=== PATIENT | female | born 1995 | race Two or more races ===

== ENCOUNTER 2023-10-28 10:09 | Outpatient (CLI) | payer BC, SELFPAY ==
[2023-10-28 10:39] LABS: Basophils Percent Auto 0.4 % (0.2-1.2); Eosinophils Absolute Auto 0.1 K/mm3 (0-0.3); Eosinophils Percent Auto 0.9 % (0-4.4); Hematocrit 37.2 % (37.0-47.0); Hemoglobin 12.5 g/dL (12.0-15.0); Immature Granulocyte Absolute 0.04 K/mm3 (0.00-0.031); Immature Granulocyte Percent A 0.4 % (0-0.5); Lymphocytes Absolute Auto 1.77 K/mm3 (0.9-3.2); Lymphocytes Percent Auto 16.4 % (18.3-44.2); Mean Corpuscular HGB Conc 33.6 g/dl (32-36); Mean Corpuscular Hemoglobin 31.5 pg (26-34); Mean Corpuscular Volume 93.7 fl (80-100); Mean Platelet Volume 11.3 fl (7.4-10.4); Monocytes Absolute Auto 0.6 K/mm3 (0.1-0.6); Monocytes Percent Auto 5.1 % (2.6-8.5); Neutrophils Absolute Auto 8.3 K/mm3 (1.3-6.7); Neutrophils Percent Auto 76.8 % (45.5-73.1); Platelet Count Result 237 k/mm3 (150-375); Red Blood Count 3.97 M/mm3 (4.2-5.4); Red Cell Distribution Width 12.9 % (11.5-14.5); White Blood Count 10.8 K/mm3 (4.5-10.0)
[2023-10-28 11:29] LABS: Hepatitis B Surface Antigen Negative (Negative); Rubella IgG Antibody 16.1 IU/ML
[2023-10-28 11:31] LABS: HIV 1/2 Ab P24 Ag Result Negative (Negative)
[2023-10-29 10:49] LABS: Rapid Plasma Reagin Non-Reactive (NonReactive)
== END 2023-10-28 10:10 | disposition home or self-care (01) ==
PROVIDERS: Visit Provider Student in an Organized Health Care Education/Training Program
DX: N94.89 Other specified conditions associated with female genital organs and menstrual cycle (principal)
CPT/HCPCS: 36415; 84702; 85025; 86592; 86644; 86703; 86747; 86762; 86787; 86850; 86900; 86901; 87086; 87340; G0432

== ENCOUNTER 2024-05-03 11:38 | Inpatient (IN) | payer BC, SELFPAY ==
[2024-05-03] VITALS (121 sets, daily range): BP systolic 83–146; BP diastolic 49–86; PULSE 63–153; RESP 16; TEMP 36.5–37.3; O2SAT 76–100; BMI 20.4
[2024-05-03 12:14] LABS: Basophils Absolute Auto 0.1 K/mm3 (0.0-0.1); Basophils Percent Auto 0.3 % (0.2-1.2); Eosinophils Absolute Auto 0.1 K/mm3 (0-0.3); Eosinophils Percent Auto 0.4 % (0-4.4); Hematocrit 37.2 % (37.0-47.0); Hemoglobin 12.1 g/dL (12.0-15.0); Immature Granulocyte Absolute 0.08 K/mm3 (0.00-0.031); Immature Granulocyte Percent A 0.5 % (0-0.5); Lymphocytes Percent Auto 10.2 % (18.3-44.2); Mean Corpuscular HGB Conc 32.5 g/dl (32-36); Mean Corpuscular Volume 92.1 fl (80-100); Mean Platelet Volume 12.2 fl (7.4-10.4); Monocytes Absolute Auto 0.8 K/mm3 (0.1-0.6); Neutrophils Absolute Auto 13.1 K/mm3 (1.3-6.7); Neutrophils Percent Auto 83.6 % (45.5-73.1); Platelet Count Result 209 k/mm3 (150-375); Red Blood Count 4.04 M/mm3 (4.2-5.4); Red Cell Distribution Width 13.3 % (11.5-14.5); White Blood Count 15.7 K/mm3 (4.5-10.0)
[2024-05-03] MEDS: LACTATED RINGERS 1,000 ML 125 ML IV CONT ×2 (12:29→16:53)
[2024-05-03 12:44] LABS: Glucose Point of Care 80 mg/dl (65-105)
[2024-05-03 13:10] LABS: HIV 1/2 Ab P24 Ag Result Negative (Negative); Syphilis IgG/IgM Antibody Negative (Negative)
[2024-05-03] MEDS: OXYTOCIN 30 UNITS/NS 500 ML 30 UNITS/500 ML BAG IV CONT (16:54)
--- NOTE | 2024-05-03 18:04 | WPDHPUPDATE1 ---
History and Physical Update Update Date/Time: 05/03/24 18:04 History and Physical has been reviewed, including an updated exam of the patient. There are NO changes in the patient's condition. Risks, benefits, and alternatives have been discussed and questions answered. Patient agrees to proceed with procedure.
--- NOTE | 2024-05-03 18:04 | WPDOBADMIT ---
Obstetrics - Admit Note Admission Note: record reviewed. No pertinent additions to the history and/or any subsequent changes in the physical findings that are not consistent with the expected course of the were found. Additions to the history and/or subsequent changes in the physical findings follow. None.
--- NOTE | 2024-05-03 18:42 | PM.OBPRVD ---
OB - Vaginal Delivery Note Procedure Delivery date: 05/03/24 Delivery augmentation: Pitocin Delivery monitor: External FHT and External Uterine Route of delivery: Episiotomy description: None Laceration Description: Vaginal Delivery repair: chromic Specimen: No Quantitative Blood Loss (ml): 200 Anesthesia type: Epidural Disposition: Floor Complications: No immediate complications Narrative: Draped usual manner for this procedure. Maternal expulsive efforts readily delivered vertex over intact perineum. Rest of baby delivered without difficulty, cord clamped cut and placenta did deliver spontaneously and intact. Cervix vagina vulva were inspected with small vaginal wall laceration which was rendered hemostatic with a [id number] suture of 0 chromic. Uterus was well contracted, no bleeding. At this point the procedure was considered terminated with the immediate postoperative condition of mother and baby both excellent. Baby Gestational Age by Date: 37 gender: Female presentation: vertex position: Right Occiput Anterior Placenta delivery description: Spontaneous Cord Vessel Description: 3 Vessels
[2024-05-03] MEDS: OXYTOCIN 30 UNITS/NS 500 ML 30 UNITS/500 ML BAG 999 UNITS IV CONT (19:06)
[2024-05-03] MEDS: BENZOCAINE 20% AER SPR (*SP) 56 GM CAN 1 SPRAY TOPICAL (21:44)
[2024-05-03] MEDS: WITCH HAZEL 40 PADS 1 PAD TOPICAL (21:44)
[2024-05-04 04:43] LABS: Hematocrit 31.2 % (37.0-47.0)
[2024-05-04 07:25] VITALS: BP 98/61; PULSE 72; RESP 16; TEMP 36.6; O2SAT 100
[2024-05-04] MEDS: MULTIVIT/MIN/PREN/FOL AC/IRON TABLET 1 TAB PO (08:06)
[2024-05-04] MEDS: IBUPROFEN 600 MG TABLET PO ×2 (08:07→20:05)
--- NOTE | 2024-05-04 10:12 | P.DS_ITS ---
DS: Admitting Diagnosis Discharge Date 05/05/2024 Admitting Diagnosis DS: Discharge Diagnosis Discharge Diagnosis (1) , delivered: Code(s): O80 - Encounter for full-term uncomplicated delivery Status: Acute OB - DS: Summary OB Procedures : None OB Procedures Intrapartum: Spontaneous Vag Delivery OB Procedures: : None Peripartum Data Laceration Description: Vaginal Episiotomy description: None Time Spent with Patient Time attestation: Total time spent providing and/or coordinating discharge services: DS: Data Data Completed and Pending Labs on day of discharge: Labs from last 24 hours 05/04/24 05/03/24 05/03/24 04:01 12:42 12:09 WBC 15.7 H RBC 4.04 L Hgb 10.0 L 12.1 Hct 31.2 L 37.2 MCV 92.1 MCH 30.0 MCHC 32.5 RDW 13.3 Plt Count 209 MPV 12.2 H Immature Gran % (Auto) 0.5 Neut % (Auto) 83.6 H Lymph % (Auto) 10.2 L Powell % (Auto) 5.0 Eos % (Auto) 0.4 Baso % (Auto) 0.3 Lymph # (Auto) 1.60 Powell # (Auto) 0.8 H Eos # (Auto) 0.1 Baso # (Auto) 0.1 Abs Immat Gran (auto) 0.08 H Absolute Neuts (auto) 13.1 H Absolute Nucleated RBC 0.000 Nucleated RBC % 0.0 POC Capillary Glucose 80 Syphilis IgG/IgM Ab Negative HIV 1&2 Ab/P24 Ag 4thGn Negative Blood Type O Positive Antibody Screen Negative Discharge Plan Discharge Discharging Clinician: Fadi Sweeney Activity: as tolerated and pelvic rest Diet: as tolerated Patient Language: Thai Follow-up/Referrals: Fadi Sweeney MD [Physician] - 4 Weeks Discharge Medications: New ibuprofen 600 mg Tablet 600 mg PO Q6H PRN (Reason: Cramping) Qty: 30 0RF Continued DHA 200 mg capsule PO Date of admission: 05/03/24 11:38 Primary Care Provider: UNKNOWN,DOCTOR Admitting Provider: Fadi Sweeney Attending physician on admission: Fadi Sweeney Condition: Stable
[2024-05-04] MEDS: TETANUS,DIPHTHERIA,AC PERTUSSIS ADULT (0.5 ML) BOOSTRIX IM (11:18)
[2024-05-04 13:10] VITALS: BP 96/59; PULSE 80; RESP 16; TEMP 36.2; O2SAT 98
--- NOTE | 2024-05-04 14:15 | WPDANLDPN2 ---
Anes-Prog Note L&D Date/Time: 05/04/24 14:15 Comfortable throughout: labor and delivery Neuraxial method: epidural Epidural/Spinal procedure site: clean & non-tender Neuro status: Neuro function grossly intact. Cardiovascular status: normal Respiratory status: normal Airway patency: baseline Mental status: baseline Post-Op hydration status: normal Vital Signs: Last Vital Signs Temp 36.2 C L 05/04/24 13:10 Pulse 80 05/04/24 13:10 Resp 16 05/04/24 13:10 BP 96/59 L 05/04/24 13:10 Pulse Ox 98 05/04/24 13:10 O2 Del Method Room Air 05/03/24 21:55 Pain score (VAS): 03/11 I/O: Intake & Output 05/03/24 05/04/24 05/04/24 23:59 07:59 15:59 Intake Total 2500 500 240 Output Total 450 200 Balance 2050 300 240 Post-procedural complaints: none Patient feedback: Patient satisfied with anesthetic care.
--- NOTE | 2024-05-04 15:02 | PC.NURSE ---
Introductions were made, then consulted with patient to assess needs related to . Mother led the conversation with her?plans to feed?her and the?experience so far. Encouraged understanding of the benefits of skin to skin (demonstrating unwrapping infant and placing upright on her chest), stimulating with massage touch, changing positions to encourage wakefulness, how to watch for early feeding cues, responsive feeding, feeding on demand (aiming for 8-12 times in 24 hours, about every 2-3 hours), milk production, building/maintaining a milk supply, duration of feeding, signs of adequate intake/output and how to record on the feeding sheet. Mother works well with her infant with encouragement and education. Reviewed positioning and ear, shoulder, hip alignment, supporting the breast to facilitate a deep latch, asymmetrical latch (off-center), leading with the chin with a big, open, wide gape and body close to mother. Infant was [unable] to maintain latch. Reviewed comfort measures of healing with a warm, wet washcloth to rinse breast, then leave open to air-dry, good handwashing when or touching the breast/nipples to prevent infection. Mother voiced understanding of skin to skin, stimulating with massage touch, responsive feedings, hand expressed colostrum, talking to to encourage if it has been 2 -2.5 hours since the start of the last , to call if does not latch, or if there is discomfort with . Insurance Breast pump provided (zomee) due to maternal request. Instructions given on cleaning, care, usage, that there should be no pain, pumping schedule for milk production, collection, and storage of human milk. Patient was assessed for correct placement, flange size, to pump for comfort and nipple stretching/stimulation for adequate milk production every 3 hours (8 times in 24 hours) 1-2 times at night. Resources used for education were facilitated with the [employer] education handouts, name written on the communication board. Parents voiced understanding of information, demonstrated learning and will call if there is a request for assistance. Reported to the Primary RN.
[2024-05-04] MEDS: DOCUSATE SODIUM 100 MG CAPSULE PO (20:06)
[2024-05-04] MEDS: LANOLIN (LANSINOH) 7.5 GM CREAM 1 APPLIC TOPICAL (20:06)
[2024-05-05 01:30] VITALS: BP 90/56; PULSE 58; RESP 16; TEMP 36.6; O2SAT 99
[2024-05-05 08:05] VITALS: BP 93/59; PULSE 67; RESP 18; TEMP 36.6; O2SAT 99
[2024-05-05] MEDS: MULTIVIT/MIN/PREN/FOL AC/IRON TABLET 1 TAB PO (09:24)
[2024-05-05] MEDS: DOCUSATE SODIUM 100 MG CAPSULE PO (09:24)
[2024-05-05] MEDS: IBUPROFEN 600 MG TABLET PO (09:24)
--- NOTE | 2024-05-05 11:20 | PC.NURSE ---
0840 Introductions were made, then consulted with patient to assess needs related to . Discussed with mother her?plans to feed?her infant and the?experience so far. Per mother baby has been very sleepy and not able to maintain latch at the the breast so she has been pumping and getting 0.5mls to 1ml per session, collecting in syringes. RN advised parents if syringe feeding needed that the RN would need to do, or they could wait, put milk in the refrigerator and collect 5 mls of pumped breast milk, put in a bottle and feed baby. Mother to call out with the next feeding so RN could assess baby at the breast. Resources provided for inpatient and outpatient services with the feeding sheet, mom/baby guide and name written on the communication board. Mother voiced understanding of information and will call if there is a request for assistance. Reported to the Primary RN. 0900 Mother called out for assistance. Mother had baby optimally latched to her right breast in cross cradle, baby would take a few sucks with stimulation but was reluctant and sleepy. Mother then switched baby to football position on the same breast, again infant latched well but would not suck and maintain her latch. Mother works very well with baby and baby's alignment and positioning was great, she just would not feed at this time. Her last feeding was a formula bottle 3-4 hours prior. Mother attempted for 10 mins and then she used her breast pump and father of baby was going to feed baby a formula bottle. RN encouraged mother to put baby to breast with each feeding if that was her goal, attempt for at least 10-15 minutes and then use her pump if baby does not breast feed and then give a bottle of pumped breast milk and/or formula. RN gave handout reinforcing the understanding of milk production, transition of milk, signs of adequate intake, transition of stool, prevention/relief of engorgement, plugged ducts, mastitis, responsive watching for feeding cues, the different methods of stimulating infant to breastfeed 1-3 hours after the start of the last feeding, community resources, and when to call a provider using the resource of the feeding sheet along with the mom and baby guide. Mother voiced understanding of the information shared, when to call for assistance, denies any additional assistance or education at this time. Reported to the Primary RN.
[2024-05-06 08:23] VITALS: BP 101/50; PULSE 76; RESP 18; TEMP 36.4; O2SAT 100
== END 2024-05-05 13:14 | disposition home or self-care (01) | DRG 807 ==
LOC: ANHLDR 11:56 → ANHOB2 22:43
PROVIDERS: Admitting Provider Obstetrics & Gynecology; Visit Provider Obstetrics & Gynecology
DX: O71.4 Obstetric high vaginal laceration alone (principal); Z37.0 Single live birth; Z3A.37 37 weeks gestation of pregnancy
CPT/HCPCS: 36415; 82948; 85014; 85018; 85025; 86593; 86703; 86850; 86900; 86901; 90715; A9270; G0432; J2250; J2274; J2590; J2795; J3010; J7120